=== PATIENT | male | born 1995 | race Caucasian/White ===

== ENCOUNTER 2016-08-08 04:05 | Emergency (ER) | payer MEDICAID, OTHER ==
[~2016-08-08] VITALS: Ht 172.7 cm; Wt 60.2 kg
[2016-08-08] MEDS ORDERED: SODIUM CHLORIDE 0.9% 1,000 ML IV ONE (04:44)
[2016-08-08] MEDS ORDERED: SODIUM CHLORIDE 0.9% 1,000ML IVBOLUS ONE (05:00)
[2016-08-08] MEDS ORDERED: MORPHINE SULFATE 4 MG/ML, 1ML IVPush PRN (05:00)
[2016-08-08] MEDS ORDERED: ONDANSETRON 2MG/ML, 2ML IVPush ONE (05:00)
[2016-08-08] MEDS ORDERED: MORPHINE SULFATE 4 MG/ML, 1ML ONE (05:05)
[2016-08-08] MEDS ORDERED: ONDANSETRON 2MG/ML, 2ML ONE (05:05)
[2016-08-08 05:22] LABS: PATH.CAST-FLAG NOT PRESENT; SPERM-FLAG NOT PRESENT; SRC-FLAG NOT PRESENT; XTAL-FLAG NOT PRESENT; YLC-FLAG NOT PRESENT
[2016-08-08 05:30] VITALS: BP 111/72
[2016-08-08 05:51] LABS: BLOOD UREA NITROGEN 14 mg/dL (7-18)
[2016-08-08 06:00] LABS: IS PT STATUS REG ER OR PRE ER? YES
== END 2016-08-08 07:03 | disposition home or self-care (01) ==
LOC: ED 05:54
DX: G89.29 Other chronic pain (principal); R07.89 Other chest pain; R10.31 Right lower quadrant pain
CPT/HCPCS: 36415; 71010; 76870; 80048; 81001; 82040; 84484; 85025; 93005; 96361; 96374; 96375; 99285; J2405; J7030